=== PATIENT | male | born 1965 | race Caucasian/White ===

== ENCOUNTER → 2023-08-25 10:57 | Outpatient (REF) | payer OTHER, SELFPAY | LOC: DHCBC MAIN 10:57 | PROVIDERS: ATTENDING PHYSICIAN Internal Medicine Cardiovascular Disease | DX: R06.09 Other forms of dyspnea (principal) | CPT/HCPCS: 93306 ==

== ENCOUNTER → 2023-08-26 07:41 | Outpatient (REF) | payer OTHER, SELFPAY | LOC: RCS 07:41 | PROVIDERS: ATTENDING PHYSICIAN Internal Medicine Cardiovascular Disease | DX: R07.2 Precordial pain (principal) | CPT/HCPCS: 93017 ==

== ENCOUNTER 2023-08-26 09:56 | Inpatient (IN) | payer OTHER, SELFPAY ==
[2023-08-26] VITALS (13 sets, daily range): BP systolic 105–153; BP diastolic 61–97; BMI 32.9
[2023-08-26 09:15] LABS: % Basophils 0.5 % (0-2); % Immature Granulocytes 0.3 % (0-0.5); % Lymphocytes 37.3 % (20.5-51.1); % Monocytes 6.6 % (1.7-9.3); % Neutrophils 52.3 % (42.2-75.2); Absolute Eosinophils 0.2 10^3/uL (0-0.7); Absolute Lymphocytes 2.8 10^3/uL (1.2-3.4); Absolute Monocytes 0.5 10^3/uL (0.1-0.6); Absolute Neutrophils 3.9 10^3/uL (1.4-6.5); Hematocrit 41.9 % (39.0-52.0); Hemoglobin 14.5 g/dL (13.0-18.0); Mean Corp Hgb Conc. 34.6 g/dL (33.0-37.0); Mean Corpuscular Hgb 29.9 pg (27.0-31.0); Mean Corpuscular Volume 86.4 fL (80.0-94.0); Mean Platelet Volume 10.5 fL (7.4-10.4); Nucleated Red Blood Cells % 0 % (-); Platelet Count 254 10^3/uL (130-400); Red Blood Cell Count 4.85 10^6/uL (4.70-6.10); Red Cell Dist. Width 13.2 % (11.5-14.5); White Blood Cell Count 7.4 10^3/uL (4.8-10.8)
[2023-08-26 09:38] LABS: Troponin I < 0.012 ng/ml
[2023-08-26 09:45] LABS: ALT (SGPT) 26 U/L (0-50); AST (SGOT) 29 U/L (17-59); Alkaline Phosphatase 68 U/L (38-126); Blood Urea Nitrogen 22 mg/dl (9-20); Calcium 9.2 mg/dl (8.4-10.2); Carbon Dioxide 23 mmol/L (22-30); Chloride 106 mmol/L (98-107); Estimated Creatinine Clearance -6 ml/min; Glucose 129 mg/dl (70-99); Potassium 4.2 mmol/L (3.5-5.1); Sodium 141 mmol/L (135-145); Total Bilirubin 0.9 mg/dl (0.2-1.3); Total Protein 7.1 g/dl (6.3-8.2); eGFR > 60.00
--- NOTE | 2023-08-26 09:49 | ED.GENMED ---
History of Present Illness
General
Chief Complaint: Abnormal Lab Value
Source: patient
Exam Limitations: none
Time Seen by Provider: 08/26/23 09:37
Nursing documentation reviewed up to this point in time: agreed with
Travel History
Have you had any contact with someone who has COVID-19?: No
Do you have any symptoms of coronavirus? Fever > 100 degrees, chills, cough, shortness of breath, sore throat, loss of taste or smell, muscle aches, or headache?: No
History of Present Illness
History of Present Illness:
Patient presents to ED for evaluation after an abnormal stress echo test this morning. Patient states that about 9 minutes into the study, he developed worsening chest pain, which prompted discontinuation of the study and transfer to ED for an
evaluation. Patient was given aspirin prior to arrival. At the time of evaluation ED, patient is without any chest pain or any other complaints. Patient states that he has had intermittent left-sided chest discomfort for at least 2 weeks, which
prompted an outpatient evaluation with cardiology. Echocardiogram was performed yesterday and stress test ordered this morning. Chest pain described as 'discomfort', nonradiating, without any alleviating or exacerbating factors. Denies associated
nausea, diaphoresis, or dizziness. Denies recent illness. Patient does not drink or smoke. There is family history of heart disease, with his father having had triple bypass at age of 37.
Past History
Past History
ED Past Medical History: Other (colitis, ); Negative Asthma, HTN, Hypercholesterolemia or NIDDM
ED Past Surgical History: Orthopedic (Ankle surgery)
Social History
Tobacco: Non-smoker
Alcohol: None
Personal:
Living: with family
Review of Systems
Review of Systems
Allergies reviewed?: Yes
All Other Systems: ROS reviewed and negative except as documented in HPI and ROS
Constitutional: Reports no symptoms
EENT: Reports no symptoms
Respiratory: Reports no symptoms
Cardiac: Reports chest pain
ABD/GI: Reports no symptoms
: Reports no symptoms
Musculoskeletal: Reports no symptoms
Skin: Reports no symptoms
Neurological: Reports no symptoms
Phy Exam
Physical Exam
Physical Exam:
Physical Exam
General: no apparent distress, not acutely ill. afebrile
Head: nc/at. eomi
Neck: supple. no meningeal signs.
Heart: s1/s2 regular rate and rhythm, no murmur. equal radial pulses.
Lungs: no acute respiratory distress. clear bilaterally
Abdomen: normal bowel sounds. not tender.
Neuro: alert and oriented. no focal neurological deficits
Skin: no rash
Psychiatric: well kept. interactive and cooperative
Extremities: no edema. no calf tenderness.
Course
Orders/Labs/Results
Orders:
Orders
08/26/23 09:01
Electrocardiogram (*1) Routine
Reason for Study: Chest Pain
08/26/23 09:08
Complete Blood Count/With Diff Urgent
Comprehensive Metabolic Panel Urgent
Troponin I Urgent
08/26/23 09:41
Admit/Transfer Patient As Directed
Co-Sign Provider:
Level of Care: Inpatient admission
Assign to:: IVU
Physician / Group: Dr. Myers
Diagnosis: unstable angina
Reason for Hospitalization: unstable angina
Expected length of stay greater than two midnights?: Yes
ELOS- Estimated Length of Stay in days: 3
I certify the patient meets the requirements for IP care: Yes
08/26/23 09:42
Code Status As Directed
Resuscitation Status: Full Code
08/26/23 09:51
Heparin 4,000 units IV NOW STA
Heparin Protocol- PTT Orders As Directed
PTT per Heparin protocol: -Obtain CBC and baseline PTT - if not already collected.
-Obtain PTT 6 hours from start of infusion. Then, every 6 hours until 2 consecutive
PTT's are therapeutic. Then, PTT Daily.
-With each rate change, obtain PTT every 6 hours until 2 consecutive PTT's are
therapeutic. Then, PTT Daily.
Notify MD As Directed
Notify physician if: PTT is greater than or equal to 200.
08/26/23 Lunch
NPO
Allow oral meds: Yes
Allow clear liquids: No
Heparin 67333 Units/250 ml 25,000 units in 250 ml IV PER PROTOCOL
Weight to be used for heparin protocol in kilograms (kg):: 113
Protocol:: Cardiac Tx/Acute Coronary
PTT Goal Range to be used:: PTT 73 to 111 seconds
Order type:: Initial
INITIAL Infusion Dose (UNITS/KG/hr) & then follow protocol:: 12 units/kg/hr
Infusion Dose in UNITS/hr & then follow protocol (UNITS/hr):: 1,000
INFUSION RATE in mL/hr & then follow protocol (mL/hr):: 10
PTT less than or equal to 64 seconds:: Increase rate by 200 units/hr (+ 2 mL/hr)
PTT 64.1 to 72.9 seconds:: Increase rate by 100 units/hr (+ 1 mL/hr)
PTT 73 to 111 seconds:: Target Range. No change in rate.
PTT 111.1 to 130.9 seconds:: Decrease rate by 100 units/hr (- 1 mL/hr)
PTT 131 to 199.9 seconds:: HOLD for 1 hr. Then decrease rate by 200 units/hr (- 2 mL/hr)
PTT greater than or equal to 200 seconds:: HOLD for 2 hrs & Notify Provider. Then decrease by 200 units/hr (-
2 mL/hr)
Lab follow-up:: Each change, PTT q6h until 2 consecutive are therapeutic. Then PTT
daily.
08/26/23 10:05
PTT Urgent
Comment: Obtain baseline before beginning heparin infusion if not already collected
08/26/23 16:51
Electrocardiogram (*1) Q6H
Reason for Study: Chest Pain
Comment: at admission and Q3H for total of 3, to be done with each troponin
Troponin I Q6H
Comment: at admit & Q3H for 3 total including ED draws, obtain ECG with each level
08/26/23 16:51
Case Management Consult ONCE
Case Management Consult: Discharge Planning
Activity As Directed
Activity Level: Bedrest
Compression Sleeves [Pneumatic Compression Sleeves] As Directed
Type: Knee high
INT (Intravenous Needle Therapy) As Directed
Comment: maintain peripheral IV access
Intake/ Output As Directed
Frequency: Per unit guidelines
Vital Signs As Directed
Frequency: q4h
Weight As Directed
Frequency: Once
08/26/23 22:51
Electrocardiogram (*1) Q6H
Reason for Study: Chest Pain
Comment: at admission and Q3H for total of 3, to be done with each troponin
Troponin I Q6H
Comment: at admit & Q3H for 3 total including ED draws, obtain ECG with each level
08/27/23 06:00
Basic Metabolic Panel IN AM
Cardiovascular Evaluation IN AM
Complete Blood Count/No Diff IN AM
08/28/23 06:00
Complete Blood Count/No Diff Q2D
Comment: Notify MD if platelet count is <130,000 or decreases by 50% from baseline
08/30/23 06:00
Complete Blood Count/No Diff Q2D
Comment: Notify MD if platelet count is <130,000 or decreases by 50% from baseline
09/01/23 06:00
Complete Blood Count/No Diff Q2D
Comment: Notify MD if platelet count is <130,000 or decreases by 50% from baseline
09/03/23 06:00
Complete Blood Count/No Diff Q2D
Comment: Notify MD if platelet count is <130,000 or decreases by 50% from baseline
09/05/23 06:00
Complete Blood Count/No Diff Q2D
Comment: Notify MD if platelet count is <130,000 or decreases by 50% from baseline
09/07/23 06:00
Complete Blood Count/No Diff Q2D
Comment: Notify MD if platelet count is <130,000 or decreases by 50% from baseline
09/09/23 06:00
Complete Blood Count/No Diff Q2D
Comment: Notify MD if platelet count is <130,000 or decreases by 50% from baseline
09/11/23 06:00
Complete Blood Count/No Diff Q2D
Comment: Notify MD if platelet count is <130,000 or decreases by 50% from baseline
Abnormal Lab Results
08/26/23
09:08
MPV 10.5 H fL
(7.4-10.4)
BUN 22 H mg/dl
(9-20)
Glucose 129 H mg/dl
(70-99)
08/26/23 09:08
08/26/23 09:08
Vital Signs
Initial and Last Documented VS:
Initial Vital Signs
Temp Pulse Resp BP Pulse Ox
98.3 F 71 18 153/90 96
08/26/23 08:58 08/26/23 08:58 08/26/23 08:58 08/26/23 08:58 08/26/23 08:58
Last Documented Vital Signs
Temp Pulse Resp BP Pulse Ox
97.7 F 62 16 127/72 99
08/26/23 17:01 08/26/23 17:01 08/26/23 17:01 08/26/23 17:00 08/26/23 17:10
MDM/Problems Addressed
MDM/Problems Addressed:
Patient remained chest pain-free during observation.
Discussed with cardiology, Dr. Myers. Heparin protocol ordered and patient will be transferred to Psych Coordinator this morning.
*EKG
Interpreted by ED Provider?: Yes
EKG Intrepretation Date: 08/26/23
Interpretation: normal
Heart Rate: 67
Rate: normal
Rhythm: sinus
[place]: normal axis
Interval: normal interval
*Critical Care Note
Total Time (30-74mins, 75-104mins- exclusive of procedures): Not Applicable
ED Attending Note
-
Portions of this chart may have been created with voice recognition software.� Occasional wrong word or��sound alike� substitutions may have occurred due to the inherent limitations of voice recognition software.
Discharge Plan
Departure
Patient Disposition: LABORATORY SUPERVISOR
Date of Disposition: 08/26/23
Time of Disposition: 09:59
Presentation/result/management discussed w/ accepting MD/DO:
Condition: Fair
Discharge Problem:
Unstable angina, Abnormal stress test
Interventions
Interventions:
*Risk Screen - Suicide Last Done: 08/26/23 08:58
*General Assessment Last Done: 08/26/23 08:58
*Neglect/Abuse Screening Last Done: 08/26/23 08:58
ED- Fall Risk Assessment Last Done: 08/26/23 09:31
*ED COVID-19 Vaccine History Last Done: 08/26/23 08:58
*Nursing Disposition Last Done: 08/26/23 15:30
Discharge Date and Time
Discharge Date/Time: 08/26/23 15:31
--- NOTE | 2023-08-26 10:06 | HPS.HSE ---
Family Physician
-
Family Physician: * NONE
Chief Complaint
-
chest pain
History of Present Illness
58 yo male with PMH of ulcerative colitis underwent stress test today. He experienced chest pain and 1.[address] depression. He reported daily chest pain with activity. We sent him to the ED for evaluation. We gave him ASA 324mg in route.
Medical History
Past Medical History
Past Medical History: Reports Other (ulcerative colitis)
Past Surgical History: Reports None
Social History
Tobacco: Non-smoker
Family History
Family History: Early CAD (father with CABG in 30s)
Allergies / Home Medications
Home Medications with original date entered in [employer]
Allergy/Medication List:
No known drug allergies.
Entyvio 300mg IV q8 weeks
Review of Systems
-
History Source: Patient
A 12 point ROS was completed and negative except as noted: Yes
Cardiac: Reports Chest Pain
Physical Exam
Vital Signs
Vital Signs
Temp Pulse Resp BP Pulse Ox
98.3 F 69 18 132/84 96
08/26/23 08:58 08/26/23 09:35 08/26/23 09:35 08/26/23 09:35 08/26/23 08:58
Physical Exam
General: Well Developed, Well Nourished and No Apparent Distress
HEENT: NormoCephalic, Anicteric and Moist mucous membranes
Respiratory: Clear and Non Labored Respirations
Cardiac: S1/S2 (normal), Regular Rhythm, Murmur (none) and JVD (none)
GI: Soft, Non Tender and Non Distended
Rectal: Deferred by Provider
Musculoskeletal: No Clubbing, No Cyanosis and No Edema
Skin: Warm and Dry
Neuro: AO x 3
Psych: Calm and Intact Judgment/Insight
Laboratory Results
-
08/26/23 09:08
08/26/23 09:08
Laboratory Results
Total Bilirubin 0.9 mg/dl (0.2-1.3) 08/26/23 09:08
AST 29 U/L (17-59) 08/26/23 09:08
ALT 26 U/L (0-50) 08/26/23 09:08
Alkaline Phosphatase 68 U/L (38-126) 08/26/23 09:08
Troponin I < 0.012 ng/ml 08/26/23 09:08
Data Reviewed
-
Medical Tests (Nuc Med, Echo, EKG etc): Image Personally Visualized and interpreted (ETT with 1.5mm ST depression; EKG: NSR, no ischemic changes)
Lab Data: Labs Reviewed by me
Old Records: Reviewed
Impression/Plan
-
ASSESSMENT/PLAN
58 yo male with FH early CAD and ulcerative colitis sent to ED following abnormal stress test.
ACS/Unstable angina
-ASA 324mg
-heparin gtt
-cardiac cath today
-echo
Ulcerative colitis
-stable
-outpatient entyvio infusions every 8 weeks
[2023-08-26] MEDS: HEPARIN 25000 UNITS/250 ML IV (10:37)
[2023-08-26 10:38] LABS: APTT 27.2 Sec (23.4-35.0)
[2023-08-26] MEDS: HEPARIN 4000 UNITS IV (10:38)
--- NOTE | 2023-08-26 17:17 | ITS.CL.ANGIO ---
Valve And Regulator Repairer - Angioplasty
Angioplasty
Procedure Report:
CARDIAC CATHETERIZATION REPORT
Date of Procedure: 08/26/2023
Referring: Richard Myers M.D., Ph.D.
INDICATION: Unstable angina, high risk stress test.
PROCEDURE:
1. Left heart catheterization.
2. Coronary angiography.
3. Successful PCI of the proximal/mid LAD.
ACCESS:
6 [place] right radial artery.
CATHETERS:
1. 5 [place] JR4.
2. 5 [place] JL 3.5.
3. 6 [place] EBU 3.75 guiding catheter.
HEMODYNAMIC DATA
Weight (kg): 112.9
AO (s/d/x, mmHg): 136/80/104
LV (s/x mmHg): 138/15
LEFT VENTRICULOGRAPHY: Not performed.
CORONARY ANGIOGRAPHY
Dominance: Left.
Left Main: Large size, bifurcating vessel. There is no coronary artery disease.
LAD: Normal size vessel giving rise to 2 diagonals in the proximal margin. There is an 80-90% lesion in the mid LAD, immediately after the origin of the diagonals.
Ramus: Congenitally absent.
Circumflex: Large size, dominant vessel giving rise to 2 obtuse marginals before terminating as an L PDA. There is a 40-50% lesion in the mid vessel, immediately after the origin of the first marginal. There are luminal irregularities elsewhere.
RCA: Small size, nondominant vessel.
INTERVENTION(S)
1. Successful PCI of the 80-90% mid LAD lesion (Xience Skypoint 3.5 x 28 ALFIE, postdilated with a 3.5 NC balloon) with reduction in stenosis to 0%, jailing the origin of the diagonals, but maintaining SAAD-3 flow throughout the left system.
Narrative:
The decision was made to proceed with percutaneous coronary intervention. The diagnostic catheter was removed over a wire and a 6Fr EBU 3.75 guiding catheter was advanced to the aortic root and seated in the left main coronary artery. Additional
heparin was given and a Power Turn Flex wire was advanced into the distal LAD. Because of the proximity of the lesion to the diagonals, the decision was made to protect the arteries. A BMW wire was advanced into the larger of the 2 diagonals. The
80-90% mid LAD lesion was predilated with a 2.0 x 12 semi-compliant balloon to 12 alta. Given difficulties with guide support and imaging, a 6 Azerbaijani guide liner was advanced over both wires to provide superior angiography. The semi-compliant
balloon was removed and a Xience Skypoint 3.5 x 28 drug-eluting stent was advanced. Unfortunately, the stent would not advance through the GuideLiner in the presence of 2 coronary wires. The stent was removed and the GuideLiner was removed. In
the process of removing the stent and GuideLiner, the BMW wire was pulled back from the diagonal. The BMW wire was subsequently readvanced, but biased into the upper, smaller diagonal. The stent was readvanced in the absence of the GuideLiner.
Meticulous care was taken while positioning the stent, ensuring that we cover the entire lesion, understanding that we would also jailed the diagonals given the proximity of the lesion to their origin. The stent was deployed at 12 atmospheres. The
stent balloon was removed. A 3.5 x 20 noncompliant balloon was advanced into the stent and the stent was postdilated to 12 atmospheres in the distal margin and 14 alta in the proximal margin. The power turn flex wire was pulled back from the distal
LAD and redirected into the larger diagonal, demonstrating that the artery could be reaccessed with relative ease. The BMW wire was pulled back from behind the LAD stent and redirected into the distal LAD, again demonstrating ease of access.
Angiography was performed in orthogonal views, confirming good stent expansion and an excellent angiographic result. The coronary wire was withdrawn and the guide was disengaged from the artery. The catheter was removed over a standard J-wire.
Closure Device: Radial band.
Radiation (mGy): 1334.25
DAP (cm2.Gy): 75.4637
Fluoroscopy time (minutes): 14.7
Sedation time (minutes): 57
CONCLUSIONS
1. Left dominant circulation with a 40-50% mid circumflex lesion and an 80-90% lesion in the mid LAD, status post successful PCI (Xience adolfo point 3.5 x 28 ALFIE, postdilated with a 3.5 NC balloon) with reduction in stenosis to 0%, jailing the origin
of the diagonals but maintaining SAAD-3 flow throughout the entire LAD system.
2. Mildly elevated filling pressures (LVEDP = 15 mmHg at 112.9 kg).
RECOMMENDATIONS:
1. Expectant management after cardiac catheterization via right radial approach.
2. Limited weight bearing on the right wrist for one week.
3. Dual antiplatelet therapy with aspirin and ticagrelor for at least 12 months, followed by aspirin indefinitely.
4. Secondary prevention with high-dose, high potency statin.
5. Echocardiogram completed.
6. Referral to cardiac rehab.
Copy to: Richard Myers M.D., Ph.D., Pelon Antoine M.D.
Ramez Burden DO, FACC, FACP
[2023-08-26] MEDS: NSS 1000 IV (17:21)
[2023-08-26] MEDS: LIPITOR 80 MG PO (17:44)
[2023-08-26 18:07] LABS: Troponin I 0.031 ng/ml
--- NOTE | 2023-08-26 19:16 | PTCARENOTE ---
Pt received post cardiac cath sone via right radial artery. Radial band in place, no sign of bleeding or hematoma. Pt denies any discomfort. Telemetry shows sinus rhythm.
--- NOTE | 2023-08-26 21:30 | PTCARENOTE ---
Right radial band removed, dry sterile dressing applied. Denies pain, VSS, call smith in reach
[2023-08-27] LABS: Troponin I 0.091 ng/ml
[2023-08-27 05:04] VITALS: BP 132/82
[2023-08-27 05:31] LABS: Hematocrit 39.1 % (39.0-52.0); Hemoglobin 13.6 g/dL (13.0-18.0); Mean Corp Hgb Conc. 34.8 g/dL (33.0-37.0); Mean Corpuscular Hgb 30.4 pg (27.0-31.0); Mean Corpuscular Volume 87.3 fL (80.0-94.0); Mean Platelet Volume 10.7 fL (7.4-10.4); Platelet Count 238 10^3/uL (130-400); Red Blood Cell Count 4.48 10^6/uL (4.70-6.10); Red Cell Dist. Width 13.2 % (11.5-14.5); White Blood Cell Count 8.8 10^3/uL (4.8-10.8)
--- NOTE | 2023-08-27 05:57 | PTCARENOTE ---
No complaints overnight, call smith in reach
[2023-08-27 06:00] LABS: Troponin I 0.207 ng/ml
[2023-08-27 06:04] LABS: Blood Urea Nitrogen 19 mg/dl (9-20); Calcium 8.4 mg/dl (8.4-10.2); Carbon Dioxide 23 mmol/L (22-30); Chloride 109 mmol/L (98-107); Estimated Creatinine Clearance 95 ml/min; Glucose 101 mg/dl (70-99); HDL Cholesterol 32 mg/dl; LDL Cholesterol, Calculated 99 mg/dl; Sodium 137 mmol/L (135-145); Total Cholesterol 160 mg/dl (50-199); Triglyceride 145 mg/dl (10-149); Very Low Density Lipoprotein 29 mg/dl (0-30); eGFR > 60.00
--- NOTE | 2023-08-27 06:58 | W.PN.CD ---
Today's Communication / Plan
-
Trend troponin.
DAPT.
Discharge planning.
Impression / Plan
-
Impression/Plan: 58 y/o male with strong family history of premature CAD and recurrent chest pain, admitted after high risk stress test results and admitting to frequent symptoms consistent with acute coronary syndrome.
#Acute Coronary Syndrome/CAD
-New diagnosis.
-Troponin up to 0.207. Trend to peak.
-Coronary angiography shows a left dominant system with a 40-50% mLCx lesion and a culprit 80-90% mLAD lesion, s/p successful (Xience Skypoint 3.5 x 28 ALFIE, post dilated with a 3.5 NCB) with reduction in stenosis to 0%, maintaining SAAD-III flow.
-DAPT with aspirin and ticagrelor for at least 12 months, followed by aspirin indefinitely.
-Holding beta kp due to baseline bradycardia.
-Secondary prevention with high dose, high potency statin.
-Total cholesterol = 160, LDL 99, HDL = 32, Triglycerides = 145. Goal LDL < 55.
#Ulcerative Colitis:
-Chronic, stable.
#PPx
-SCD's for DVT/VTE.
-No role for PPI.
#Dispo
-IVU status.
-Discharge planning.
Subjective/Interval History:
PCI yesterday for unstable angina.
Baseline HR 60.
DATA:
Cardiac Catheterization/PCI, 08/26/2023:
CONCLUSIONS
1.� Left dominant circulation with a 40-50% mid circumflex lesion and an 80-90% lesion in the mid LAD, status post successful PCI (Xience adolfo point 3.5 x 28 ALFIE, postdilated with a 3.5 NC balloon) with reduction in stenosis to 0%, jailing the origin
of the diagonals but maintaining SAAD-3 flow throughout the entire LAD system.
2.� Mildly elevated filling pressures (LVEDP = 15 mmHg at 112.9 kg).
TTE, 08/25/2023:
CONCLUSIONS
�Normal biventricular size and systolic function without regional wall motion
�abnormality.
�Mild left atrial enlargement.
�No prior study available for comparison.
Physical Exam
Vital Signs/Labs
Vital Signs
Temp Pulse Resp BP Pulse Ox
36.4 C 57 16 132/82 98
08/27/23 05:00 08/27/23 05:45 08/27/23 05:00 08/27/23 05:04 08/27/23 05:00
08/25/23 08/26/23 08/27/23
11:59 11:59 11:59
Actual Weight 113 kg
08/27/23 05:10
08/27/23 05:10
APTT Cancelled 08/26/23 16:40
Triglycerides 145 mg/dl (10-149) 08/27/23 05:10
LDL Cholesterol, Calc 99 mg/dl 08/27/23 05:10
VLDL Cholesterol, Calc 29 mg/dl (0-30) 08/27/23 05:10
HDL Cholesterol 32 mg/dl 08/27/23 05:10
LAB Results
08/26/23 08/26/23 08/26/23
09:08 17:30 22:43
Troponin I < 0.012 0.031 Cancelled
08/26/23 08/27/23
23:13 05:10
Troponin I 0.091 H* D 0.207 H* D
Physical Exam
Constitutional: No acute distress and Comfortable
EENT: Anicteric and Moist mucous membranes
Cardiovascular: Rhythm & rate is regular, Pedal edema is absent, JVD pressure is normal, S1S2 is normal and Murmur/rub/gallop absent
Respiratory: Respiratory effort normal, Lungs clear to auscul., Wheeze Absent, Crackles Absent and Rhonchi Absent
GI: Soft, Distention absent, Flat, Non tender and Normal bowel sounds
Neuro/Psych: AO x 3
Other: Cath Site (Right radial access site is C/D/I.)
Data Reviewed
-
Date of Service: August 27, 2023
Medical Decision Making: Reviewed Test Results, Independent Historian Assessment and Test Interpretation
EKG: Tracing Personally Visualized and interpreted and Report Reviewed by me
Echo: Tracing Personally Visualized and interpreted and Report Reviewed by me
X-Ray/CT/US/MRI/NUC/PET: Image Personally Visualized and interpreted and Report Reviewed by me
Medical Tests (PFT, Pathology etc): Image Personally Visualized and interpreted, Report Reviewed by me, Discussed with Physician, Discussed with Nurse, Discussed with Patient and Discussed with Family
Labs: Labs Reviewed by me
Old Records: Reviewed
[2023-08-27 06:59] VITALS: BP 138/83
[2023-08-27 07:45] LABS: ACT-LR - POC > 397 Seconds (116-155)
[2023-08-27 07:45] LABS: ACT-LR - POC > 397 Seconds (116-155)
[2023-08-27] MEDS: LOW STRENGTH ASPIRIN 81 MG PO (08:32)
[2023-08-27] MEDS: BRILINTA 90 MG PO (08:32)
--- NOTE | 2023-08-27 09:09 | CM ---
Pricing on Brilinta 90mg BID is $0 copay through the patient's [facility] program
[2023-08-27 09:24] LABS: Glycohemoglobin (HgbA1c) 6.2 % (4.0-5.6)
[2023-08-27 09:51] LABS: Troponin I 0.197 ng/ml
--- NOTE | 2023-08-27 10:36 | CM ---
Chart reviewed. Patient is independent of ADLS, lives with his in a [address], 2 [address], 0 DME. Patient currently with no discharge needs. CM to follow.
[2023-08-27 11:33] VITALS: BP 147/83
[2023-08-27 15:42] VITALS: BP 142/80
--- NOTE | 2023-08-27 16:50 | W.DS.TRANS ---
DC Summary - Apparel Cutter
-
Discharge Instructions:
Discharge Diagnosis/Procedures Angioplasty and stent to Left Anterior
Descending artery
Diet Low Cholesterol
Driving Restrictions No driving for 24 hours
Other Services Cardiac Rehab
Instructions:
Stand-Alone Forms: DC Instructions- Cath/EP Lab
Changes to Home Medications: Yes
Discharge Medications:
DC Medications w/original date entered in [email or web address]
vedolizumab 300 mg intravenous solution (Entyvio) 300 mg IV Q8W Autoimmune Disorder 08/26/23
aspirin 81 mg chewable tablet (Children's Aspirin) 81 mg PO DAILY #1 tab 08/27/23
atorvastatin 80 mg tablet 80 mg PO QPM #90 tabs 08/27/23
nitroglycerin 0.4 mg sublingual tablet 0.4 mg sublingual [id number] PRN chest pain #25 tabs 08/27/23
ticagrelor 90 mg tablet (Brilinta) 90 mg PO BID #180 tabs 08/27/23
Home Medication Changes
All new except vedolizumab
Pending Results: No
[2023-08-27] MEDS: LIPITOR 80 MG PO (17:07)
--- NOTE | 2023-08-27 19:08 | PTCARENOTE ---
Pt up walking in halls without problem. Troponin peaked at 0.207. Telemetry shows sinus rhythm @60's. Pt seen by Dr. Burden and Shantell Patel NP. Pt given brilinta samples until his pharmacy is stocked. Discharge instructions reviewed with pt and his
daughter regarding medications and their possible side effects,activity guidelines, wound care, diet, reporting cares and concerns and follow up appt's. Very good understanding verbalized. Pt escorted out via wheelchair and pt discharged to home.
== END 2023-08-27 18:30 | disposition home or self-care (01) | DRG 322 ==
LOC: IVU 09:56
PROVIDERS: Emergency Medicine; Internal Medicine Cardiovascular Disease; Nurse Practitioner; Nurse Practitioner Adult Health; ADMITTING PHYSICIAN Internal Medicine; EMERGENCY PHYSICIAN Emergency Medicine
PROC: B2151ZZ Fluoroscopy of Left Heart using Low Osmolar Contrast (ICD-10-PCS; 2023-08-26)
PROC: 027034Z Dilation of Coronary Artery, One Artery with Drug-eluting Intraluminal Device, Percutaneous Approach (ICD-10-PCS; 2023-08-26)
PROC: B2111ZZ Fluoroscopy of Multiple Coronary Arteries using Low Osmolar Contrast (ICD-10-PCS; 2023-08-26)
PROC: 4A023N7 Measurement of Cardiac Sampling and Pressure, Left Heart, Percutaneous Approach (ICD-10-PCS; 2023-08-26)
DX: I25.110 Atherosclerotic heart disease of native coronary artery with unstable angina pectoris (principal); K51.90 Ulcerative colitis, unspecified, without complications
CPT/HCPCS: 80048; 80053; 80061; 83036; 84484; 85025; 85027; 85347; 85730; 93005; 93458; 96365; 96366; 99285; C1725; C1769; C1874; C1894; C9600; Q9967

== ENCOUNTER 2024-01-12 17:42 | Emergency (ER) | payer OTHER, SELFPAY ==
[2024-01-12 17:42] VITALS: BMI 31.4
[2024-01-12 17:45] VITALS: BP 160/90
[2024-01-12 21:01] VITALS: BP 151/78
--- NOTE | 2024-01-12 23:12 | ED.SKININJ ---
HPI-Injury
General
Chief Complaint: Bite
Source: patient
Exam Limitations: none
Time Seen by Provider: 01/12/24 19:34
Nursing documentation reviewed up to this point in time: agreed with
History of Present Illness-Injury
Is this injury a work related problem?: No
Is pt an associate of [facility]/[place]?: No
Initial Injury comments:
Patient states he tried to break of fight between his dogs and was bit by one of the dogs. Sustained a bite to left dorsal hand. Injury occurred just TREATMENT SPECIALIST. Dogs are UTD wtihrabies.
Past History
Past History
ED Past Medical History: Other (colitis, ); Negative Asthma, HTN, Hypercholesterolemia or NIDDM
ED Past Surgical History: Orthopedic (Ankle surgery)
Social History
Tobacco: Non-smoker
Alcohol: None
Personal:
Living: with family
Review of Systems
Review of Systems
Allergies reviewed?: Yes
All Other Systems: ROS reviewed and negative except as documented in HPI and ROS
Constitutional: Reports no symptoms
Musculoskeletal: Reports no symptoms
Skin: Reports other (dog bite left dorsal hand)
Neurological: Reports no symptoms
Psychiatric: Reports no symptoms
Skin Exam
Bite
Left Dorsal Hand:
Type: animal
Skin has: full thickness laceration
Laceration length in cm: 2
Surrounding area around bite has: no evidence of erythema
Distal skin color and temperature: normal-warm & good color
Normal distal neurovascular exam: Yes
Phy Exam
General Physical Exam
General Presentation: well appearing and no apparent distress
General age: appears stated age
General Skin: warm and dry
General Habitus: normal
Musculoskeletal Exam
Musculoskeletal Exam: full ROM and neuro vasc intact
Skin Exam
Skin Exam: normal color, warm/dry and no rash
Psychiatric Exam
Psychiatric Exam: normal mood/affect
Course
Orders/Labs/Results
Orders:
Orders
01/12/24 19:41
Hand, Left 3 View [CR Hand - Left Min 3 Views] Urgent
Comment:
Reason For Exam: dog bite
Vital Signs
Initial and Last Documented VS:
Initial Vital Signs
Temp Pulse Resp BP Pulse Ox
98.3 F 74 19 160/90 98
01/12/24 17:45 01/12/24 17:45 01/12/24 17:45 01/12/24 17:45 01/12/24 17:45
Last Documented Vital Signs
Temp Pulse Resp BP Pulse Ox
98.3 F 70 20 151/78 97
01/12/24 17:45 01/12/24 21:01 01/12/24 21:01 01/12/24 21:01 01/12/24 21:01
Procedures
Laceration Closure
Left Dorsal Hand:
Status of Wound: clean
Description of Wound Edges: sharp
Preparation: cleaned with saline and cleaned with Betadine
Anesthesia: 1% Lidocaine
Revision/Debridement: routine- no revision and irrigate-direct pressure
Wound exploration: explored to base- no FB and no tendon involvement
Type of Closure: single layer closure
Skin Closure Material: 4-0 prolene
*Radiology
Radiology exam reviewed: radiology read reviewed
*Pulse Oximetry
Patient hypoxic: no
*Critical Care Note
Total Time (30-74mins, 75-104mins- exclusive of procedures): Not Applicable
Update Note
Update Note:
Wound loosely closed with 2 sutures. He declines antibiotics, states antibiotics aggravate his colitis. risks benefits explained however he continues to decline. WIll discharge judy and he max follow up with his healthcare provider in 2 days for
a wound check. Given instructions on s/s to return to ED and he is agreeable to plan.
ED Attending Note
-
Portions of this chart may have been created with voice recognition software.� Occasional wrong word or��sound alike� substitutions may have occurred due to the inherent limitations of voice recognition software.
Discharge Plan
Departure
Patient Disposition: Home (Routine Discharge)
Date of Disposition: 01/12/24
Time of Disposition: 20:34
Patient with high blood pressure during this ER visit?: No
Condition: Good
Covid-19: Not Applicable
Discharge Problem:
Dog bite of hand
Instructions: Animal Bites (DC), Wound Care (DC), Laceration Repair With Stitches (DC)
Prescriptions:
No Action
Entyvio 300 mg Recon Soln
300 mg IV Q8W
Brilinta 90 mg Tablet
90 mg PO BID Qty: 180 5RF
atorvastatin 80 mg Tablet
80 mg PO QPM Qty: 90 5RF
aspirin [Children's Aspirin] 81 mg Tablet,Chewable
81 mg PO DAILY Qty: 1 0RF
nitroglycerin [nitroglycerin] 0.4 mg tablet, sublingual
0.4 mg sublingual [id number] PRN (Reason: chest pain) Qty: 25 5RF
Referrals:
NONE,* [Family Provider] -
Activity Restrictions/Additional Instructions:
Follow up with your family doctor in 2-3 days for a wound check. Sutures can be removed in 7-10 days.
Interventions
Interventions:
*Risk Screen - Suicide Last Done: 01/12/24 17:45
*General Assessment Last Done: 01/12/24 17:45
*Neglect/Abuse Screening Last Done: 01/12/24 17:45
ED- Fall Risk Assessment Last Done: 01/12/24 21:00
*ED COVID-19 Vaccine History Last Done: 01/12/24 21:00
*Nursing Disposition Last Done: 01/12/24 21:00
ED-Skin Assessment Last Done: 01/12/24 20:58
Discharge Date and Time
Discharge Date/Time: 01/12/24 21:01
Print Language: [id number]
== END 2024-01-12 21:01 | disposition home or self-care (01) ==
LOC: EMR 17:42
PROVIDERS: EMERGENCY PHYSICIAN Emergency Medicine
DX: S61.412A Laceration without foreign body of left hand, initial encounter (principal); W54.0XXA Bitten by dog, initial encounter; K52.9 Noninfective gastroenteritis and colitis, unspecified; I10 Essential (primary) hypertension; E78.5 Hyperlipidemia, unspecified; Z95.5 Presence of coronary angioplasty implant and graft; Z79.82 Long term (current) use of aspirin
CPT/HCPCS: 99283; 12001; 73130